=== PATIENT | female | born 1970 | race Two or more races ===

== ENCOUNTER 2016-09-03 20:01 | Emergency (ER) | payer OTHER ==
--- NOTE | 2016-09-03 20:28 | EDPHY ---
HPI/HX/ROS/PE/MDM Narrative: CHIEF COMPLAINT: Right leg pain HPI: This patient is a 46 year old female who presents to the Emergency Department complaining of atraumatic right leg pain worsening over the past week. She reports a history of chronic intermittent low back pain and has been told in the past that she has had sciatica exacerbations accounting for prior episodes of leg pain. Today, she describes her pain as most severe over the medial aspect of her right knee and just inferior to the medial malleolus. She does report mild low back pain at baseline. Her leg pain is persistent and exacerbated when bearing weight. She takes 800mg Ibuprofen BID with moderate improvement to her complaints. REVIEW OF SYSTEMS: Aside from elements discussed in the HPI, a comprehensive 10-point review of systems was reviewed and is negative. PMH: Denies SOCIAL HISTORY: Irish speaker. PHYSICAL EXAM: General:Patient is alert, in no acute distress. Back: Atraumatic. No tenderness. Right lower extremity: Normal appearing. No swelling or redness. No focal tenderness. Motor and sensation in tact. ED Course: 46-year-old female with history of chronic low back pain with sciatica presents with complaints of right knee and right foot pain worsening over the past week. On exam, she has no midline lumbar tenderness. No focal tenderness, erythema, or swelling to the right leg. Will proceed with x-ray of the lumbar spine. X-ray is negative per Dr. Snow, radiology. I discussed these findings with the patient. She will be started on methylprednisone for symptomatic treatment of sciatica and discharged home in good condition with referral to PCP for follow- up. She is agreeable to this and expresses understanding of customary return precautions. - Data Points Imaging Results: Imaging Impressions Lumbar Spine X-Ray 09/03/16 20:36 Impression: Negative lumbosacral spine. If symptoms persist, MRI could be considered for further evaluation. Medications Given: Discontinued Medications Hydrocodone Bitart/Acetaminophen ([place] 5/325mg Prepack#6) 1 btl TAKEHOME EDNOW ONE Stop: 09/03/16 21:24 Last Admin: 09/03/16 21:39 Dose: 1 btl General Time Seen by Provider: 09/03/16 20:26 Initial Vital Signs: Initial Vital Signs Heart Rate 66 09/03/16 20:03 Respiratory Rate 18 09/03/16 20:03 Blood Pressure 123/68 H 09/03/16 20:03 O2 Sat (%) 94 09/03/16 20:03 O2 Delivery Mode Room Air Allergies/Adverse Reactions: No Known Allergies Allergy (Unverified 07/05/10 22:32) Home Medications: Medication Instructions Recorded Pnv95/Ferrous Fumarate/FA 1 each PO 11/19/10 [ Multivitamins Tablet] IBUPROFEN 09/03/16 methylPREDNISolone [Medrol Dose 1 each PO AD #1 ea 09/03/16 Jose] Departure - Departure Disposition: Home, Routine, Self-Care Clinical Impression: Sciatica Qualifiers: Laterality: right Qualified Code(s): M54.31 - Sciatica, right side Condition: Good Instructions: Hydrocodone/Acetaminophen (By mouth), Sciatica (ED) Additional Instructions: 1. Take methylprednisone as prescribed to help treat your sciatic pain. 2. Follow-up with your primary care provider if your pain does not improve with use of methylprednisone. 3. Return to the Emergency Department with severe knee or back pain, loss of bowel or bladder control, or for other serious concerns. 1. [place] methylprednisone a ángela se le receto para ayudar con el tratar dorantes dolor del nervio asiatico. 2. Joan yary alina de seguimiento con dorantes doctor de cabecera si dorantes dolor no mejora con el methylprednisone. 3. Regrese a la mima de emergencia si tiene dolor vi de la rodilla o de la espalda, si incontinencia del maryellen u orina, o si tiene preocupaciones serias. Referrals: [facility] [Other] - As per Instructions Prescriptions: methylPREDNISolone [Medrol Dose Jose] 1 each PO AD #1 ea Report Scribed for: Hadley Polanco Report Scribed by: Parris Huerta Date of Report: 09/03/16 Time of Report: 20:27 Physician Review and Approval Statement: Portions of this note were transcribed by an ED scribe. I personally performed the history, physical exam, and medical decision making; and confirm the accuracy of the information in the transcribed note.
[2016-09-03] MEDS ORDERED: HYDROCODONE/APAP 5/325 TAB PO ONE (21:23)
[2016-09-03] MEDS ORDERED: HYDROCOD/APAP 5/325 PREPACK#6 BTL TAKEHOME ONE (21:23)
[2016-09-03 21:51] VITALS: BP 108/86; PULSE 63; RESP 20; TEMP 98.4; O2SAT 96
== END 2016-09-03 21:53 | disposition home or self-care (01) ==
DX: M54.31 Sciatica, right side (principal)